=== PATIENT | female | born 1995 | race Caucasian/White ===

== ENCOUNTER → 2025-04-23 16:09 | Outpatient (REF) | payer BC, SELFPAY ==
[2025-04-23 18:06] LABS: ALT (SGPT) 21 U/L (0-35); AST (SGOT) 28 U/L (14-36); Albumin 4.8 g/dl (3.5-5.0); Alkaline Phosphatase 77 U/L (38-126); Blood Urea Nitrogen 13 mg/dl (7-17); Calcium 9.5 mg/dl (8.4-10.2); Carbon Dioxide 20 mmol/L (22-30); Chloride 106 mmol/L (98-107); Glucose 118 mg/dl (70-99); Iron 87 ug/dl (37-170); Potassium 3.9 mmol/L (3.5-5.1); Sodium 137 mmol/L (135-145); Total Protein 7.8 g/dl (6.3-8.2); eGFR > 60.00
[2025-04-23 19:00] LABS: Ferritin 33.0 ng/ml (6.24-137); TSH 1.42 uIU/ml (0.47-4.68); Total Iron Binding Capacity 333 ug/dl (265-497); Vitamin B12 388 pg/ml (239-931)
[2025-04-25 19:03] LABS: Total T3 (Sendout) 109 ng/dL (80-200)
== END ==
LOC: REG 16:09
PROVIDERS: ATTENDING PHYSICIAN Nurse Practitioner Adult Health
DX: D50.8 Other iron deficiency anemias (principal); R00.0 Tachycardia, unspecified; R53.83 Other fatigue; R00.2 Palpitations
CPT/HCPCS: 36415; 80053; 82607; 82728; 83540; 83550; 84436; 84443; 84480